=== PATIENT | female | born 1970 | race African-American/Black ===

== ENCOUNTER 2017-09-28 10:26 | Emergency (ER) | payer BC ==
[2017-09-28 10:36] VITALS: BP 119/70; PULSE 69; TEMP 98.8; BMI 24.3
--- NOTE | 2017-09-28 12:05 | PDOC ---
History of Present Illness - General Chief Complaint: Eye Problem Stated Complaint: RT EYE PAIN Time Seen by Provider: 09/28/17 11:31 History Source: Patient Exam Limitations: No Limitations - History of Present Illness Initial Comments: CHIEF COMPLAINT: 47 y/o afebrile female c/o right eye foreign body sensation. HISTORY OF PRESENT ILLNESS: The patient states she woke up this morning with the sensation that something is stuck in her right eye. She states every time she blinks she feels it and her right eye is watery. She states she felt fine last night before bed. Vital signs on arrival are within normal limits. REVIEW OF SYSTEMS: GENERAL/CONSTITUTIONAL: No fever HEAD, EYES, EARS, NOSE AND THROAT: +foreign body sensation right eye. SKIN: No rash or easy bruising. NEUROLOGIC: No headache, vertigo, loss of consciousness, or loss of sensation. PHYSICAL EXAM: GENERAL: The patient is awake, alert, and fully oriented, in no acute distress. HEAD: Normal with no signs of trauma. ENT: Pupils equal, round and reactive to light, extraocular movements intact, sclera anicteric. right eye watery. flipped right upper lid to find internal medial hordeolum, which is most likely the cause of her irritation. No other foreign body observed. Could not perform fluorescein exam due to backorder of fluorescein. SNELLEN: 20/25 (L); 20/25 (R) EXTREMITIES: Normal range of motion, no edema. NEUROLOGICAL: Normal speech, normal gait. CN II-XII grossly intact. SKIN: Warm, dry, normal turgor, no rashes or lesions noted. Past History - Past Medical History Allergies/Adverse Reactions: Allergies Allergy/AdvReac Type Severity Reaction Status Date / Time No Known Allergies Allergy Verified 09/28/17 10:32 Home Medications: Ambulatory Orders NK [No Known Home Medication] 09/28/17 COPD: No - Immunization History Immunization Up to Date: Yes - Suicide/Smoking/Psychosocial Hx Smoking History: Never smoked *Physical Exam - Vital Signs Last Vital Signs Temp Pulse Resp BP Pulse Ox 98.8 F 69 18 119/70 100 09/28/17 10:33 09/28/17 10:33 09/28/17 10:33 09/28/17 10:33 09/28/17 10:33 Medical Decision Making - Medical Decision Making A/P: 47 y/o afebrile female with right hordeolum. Vision normal. Will wash out eye in the ER. Will discharge to home with instructions to use warm compresses multiple times per day and f/u with referred call center supervisor if no improvement within 1 week. Also suggested no eye make up until symptoms resolve. The patient verbalizes understanding of all instructions, has no further questions and is awaiting discharge. *DC/Admit/Observation/Transfer Diagnosis at time of Disposition: Hordeolum internum of left upper eyelid - Discharge Dispostion Disposition: HOME Condition at time of disposition: Good - Referrals Referrals: Kaiden Owens MD [Primary Care Provider] - Jose Rafael Chan MD [Staff Physician] - 1 week - Patient Instructions Printed Discharge Instructions: DI for Hordeolum Additional Instructions: Discharge Instructions: -You have a stye in your eye -Please apply warm compresses multiple times per day -Please avoid wearing eye make up until feeling better -Please call the referred Stuntman within 2 weeks if no improvement in symptoms - Post Discharge Activity Forms/Work/School Notes: Back to Work
[2017-09-28] MEDS ORDERED: TETRACAINE 0.5% OPHTH SOLN 2 ML BOTTLE ONE (12:12)
== END 2017-09-28 12:18 | disposition home or self-care (01) ==
LOC: JERFT 10:26
DX: H00.024 Hordeolum internum left upper eyelid (principal)
CPT/HCPCS: 99281-25

== ENCOUNTER 2024-02-29 02:32 | Emergency (ER) | payer BC ==
[2024-02-29 02:38] VITALS: BP 155/82; PULSE 65; RESP 18; TEMP 97.7; BMI 27.2
[2024-02-29] MEDS ORDERED: AMOX TR/POT CLAV 875MG/125MG TABLETS (FP) ONE (03:02)
[2024-02-29] MEDS ORDERED: IBUPROFEN 400 MG TABLET (FP) PO ONE (03:02)
[2024-02-29] MEDS ORDERED: oxyCODONE HCL 5 MG TABLET ONE (03:03)
[2024-02-29] MEDS: oxyCODONE HCL 5 MG TABLET PO ONE (03:07)
[2024-02-29] MEDS: AMOX TR/POT CLAV 875MG/125MG TABLETS (FP) PO ONE (03:07)
[2024-02-29] MEDS: IBUPROFEN 400 MG TABLET (FP) PO ONE (03:07)
== END 2024-02-29 03:50 | disposition home or self-care (01) ==
LOC: JER 02:32
DX: K08.89 Other specified disorders of teeth and supporting structures (principal)
CPT/HCPCS: 99283-25